=== PATIENT | female | born 1940 | race Caucasian/White ===

== ENCOUNTER → 2016-11-18 | Outpatient (CLI) | payer OTHER ==
[~2016-11-18] MED LIST: 'XANAX0.5 MG PO; ASPIRIN81 M1 PO; CITALOPRAM20 MG PO; COUMADIN6 M1 PO; COUMADIN6 M2 PO; DICLOFENAC SOD75 MG PO; FISH OIL1000 MG PO; FOLIC ACID800 MCG PO; FOSAMAX70 MG PO; HYDROCODONE W/1 TA1 PO; LISINOPRIL20 MG PO; NEXIUM40 MG PO; PERCOCET 325 MG1 TA4 PO; PERCOCET 325 MG1 TA7 PO; PRILOSEC20 M2 PO; SIMVASTATIN10 MG PO; VITAMIN D1000 IU PO
== END | disposition home or self-care (01) ==
LOC: MRI 01:52
DX: M43.16 Spondylolisthesis, lumbar region (principal); M51.36 Other intervertebral disc degeneration, lumbar region; M46.06 Spinal enthesopathy, lumbar region; M12.88 Other specific arthropathies, not elsewhere classified, other specified site; M79.604 Pain in right leg; G89.29 Other chronic pain

== ENCOUNTER → 2016-11-21 | Outpatient (CLI) | payer OTHER | END | disposition home or self-care (01) | LOC: NM 01:57 | DX: M17.0 Bilateral primary osteoarthritis of knee (principal); Z96.651 Presence of right artificial knee joint ==

== ENCOUNTER 2017-02-09 17:20 | Emergency (ER) | payer OTHER ==
[~2017-02-09] VITALS: Wt 95.3 kg
== END 2017-02-09 19:13 | disposition home or self-care (01) ==
LOC: ED 17:20
DX: S13.9XXA Sprain of joints and ligaments of unspecified parts of neck, initial encounter (principal); S09.90XA Unspecified injury of head, initial encounter; R03.0 Elevated blood-pressure reading, without diagnosis of hypertension; Z90.710 Acquired absence of both cervix and uterus; Z96.651 Presence of right artificial knee joint; Z98.890 Other specified postprocedural states; Z79.01 Long term (current) use of anticoagulants; Z79.899 Other long term (current) drug therapy; W01.198A Fall on same level from slipping, tripping and stumbling with subsequent striking against other object, initial encounter; Y93.89 Activity, other specified; Y92.89 Other specified places as the place of occurrence of the external cause; Y99.9 Unspecified external cause status

== ENCOUNTER → 2017-02-28 | Outpatient (CLI) | payer OTHER ==
[2017-02-28 15:42] LABS: BASO % 0.5 % (0.0-1.0); EOS % 0.4 % (1.0-4.0); HEMATOCRIT 41.5 % (37.0-47.0); HEMOGLOBIN 13.3 g/dl (12.0-16.0); LYMPH # 3.9 10*3/uL (1.3-4.4); MEAN CELL VOLUME 83.8 fl (81.0-99.0); MEAN CORPUSCULAR HGB 26.9 pg (27.0-31.0); MEAN PLATELET VOLUME 10.2 fl (9.6-12.3); MONO # 0.7 10*3/uL (0.1-1.0); MONO % 8.3 % (3.0-9.0); NEUT # 3.8 10*3/uL (2.3-7.9); NEUT % 44.3 % (47.0-73.0); PLATELET COUNT AUTOMATED 239 10*3/uL (130-400); RED BLOOD COUNT 4.95 10*6/uL (4.10-5.10); RED CELL DISTRI WIDTH 14.3 % (0-14.5); WHITE BLOOD COUNT 8.5 10*3/uL (4.8-10.8)
== END | disposition home or self-care (01) ==
LOC: LAB 15:17
PROVIDERS: Physician Assistant
DX: M79.606 Pain in leg, unspecified (principal); R53.1 Weakness

== ENCOUNTER → 2017-10-26 | Outpatient (CLI) | payer OTHER | END | disposition home or self-care (01) | LOC: US 01:45 | DX: N28.89 Other specified disorders of kidney and ureter (principal) ==

== ENCOUNTER → 2018-01-31 | Outpatient (CLI) | payer OTHER ==
[2018-01-31 14:06] LABS: BASO % 0.3 % (0.0-1.0); EOS % 0.2 % (1.0-4.0); HEMATOCRIT 43.2 % (37.0-47.0); HEMOGLOBIN 13.7 g/dl (12.0-16.0); LYMPH # 3.4 10*3/uL (1.3-4.4); LYMPH % 37.4 % (27.0-41.0); MEAN CELL VOLUME 84.4 fl (81.0-99.0); MEAN CORPUSCULAR HGB 26.8 pg (27.0-31.0); MEAN CORPUSCULAR HGB CONC 31.7 g/dl (33.0-37.0); MEAN PLATELET VOLUME 10.2 fl (9.6-12.3); MONO # 0.7 10*3/uL (0.1-1.0); MONO % 7.6 % (3.0-9.0); NEUT # 4.8 10*3/uL (2.3-7.9); NEUT % 53.9 % (47.0-73.0); PLATELET COUNT AUTOMATED 243 10*3/uL (130-400); RED BLOOD COUNT 5.12 10*6/uL (4.10-5.10); RED CELL DISTRI WIDTH 14.6 % (0-14.5)
[2018-01-31 14:08] LABS: BILIRUBIN NEGATIVE (NEGATIVE); BLOOD 2+ (NEGATIVE); CLARITY CLOUDY (CLEAR); COLOR YELLOW (YELLOW); GLUCOSE NEGATIVE (NEGATIVE); KETONE NEGATIVE (NEGATIVE); LEUKO ESTERASE 2+ (NEGATIVE); NITRITE POSITIVE (NEGATIVE); PH 5.5 (5.0-9.0); SPECIFIC GRAVITY >= 1.030 (1.005-1.030); UROBILINOGEN 0.2 E.U./dl (0.2-1.0)
[2018-01-31 14:20] LABS: WBC TNTC wbc/hpf (0-5)
[2018-01-31 14:36] LABS: ALBUMIN 3.7 gm/dl (3.1-4.5); ALKALINE PHOSPHATASE 93 U/L (45-117); BUN 21 mg/dl (7-24); CHLORIDE 103 mmol/L (98-107); CREATININE 0.95 mg/dL (0.55-1.02); POTASSIUM 4.1 mmol/L (3.5-5.1); SGOT/AST 30 IU/L (3-35); SGPT/ALT 22 U/L (12-78); SODIUM 136 mmol/L (136-145); TOTAL PROTEIN 8.2 gm/dL (6.4-8.2)
== END ==
LOC: CT 01-30 11:00 → LAB 13:37 → CT 14:00
PROVIDERS: Urology
DX: R31.9 Hematuria, unspecified (principal); R32 Unspecified urinary incontinence; K40.90 Unilateral inguinal hernia, without obstruction or gangrene, not specified as recurrent; M12.88 Other specific arthropathies, not elsewhere classified, other specified site; Z90.710 Acquired absence of both cervix and uterus

== ENCOUNTER → 2019-01-07 | Outpatient (CLI) | payer OTHER ==
[~2019-01-07] MED LIST changes: +COUMADIN3 M1 PO; +CYMBALTA60 MG PO; +FOLIC ACID0.8 M1 PO; +LEVOTHYROXINE50 MCG PO; +Lopressor25 MG PO; +MYRBETRIQ50 M1 PO; +Oscal,Oyster S500 MG PO; +REXULTI0.5 MG PO; +TOVIAZ8 MG PO; +XARE20MG PO
[2019-01-07 15:20] LABS: BASO % 0.4 % (0.0-1.0); EOS # 0.1 10*3/uL (0.0-0.4); EOS % 0.7 % (1.0-4.0); HEMATOCRIT 43.6 % (37.0-47.0); HEMOGLOBIN 13.7 g/dl (12.0-16.0); LYMPH # 2.4 10*3/uL (1.3-4.4); LYMPH % 29.4 % (27.0-41.0); MEAN CELL VOLUME 86.9 fl (81.0-99.0); MEAN CORPUSCULAR HGB 27.3 pg (27.0-31.0); MEAN CORPUSCULAR HGB CONC 31.4 g/dl (33.0-37.0); MEAN PLATELET VOLUME 10.4 fl (9.6-12.3); MONO # 0.7 10*3/uL (0.1-1.0); MONO % 8.1 % (3.0-9.0); NEUT # 4.9 10*3/uL (2.3-7.9); NEUT % 60.5 % (47.0-73.0); PLATELET COUNT AUTOMATED 255 10*3/uL (130-400); RED BLOOD COUNT 5.02 10*6/uL (4.10-5.10)
[2019-01-07 15:47] LABS: ALBUMIN 3.3 gm/dl (3.1-4.5); ALKALINE PHOSPHATASE 91 U/L (45-117); BUN 16 mg/dl (7-24); CHLORIDE 104 mmol/L (98-107); CREATININE 0.98 mg/dL (0.55-1.02); POTASSIUM 3.9 mmol/L (3.5-5.1); SGOT/AST 16 IU/L (3-35); SGPT/ALT 17 U/L (12-78); SODIUM 137 mmol/L (136-145); TOTAL PROTEIN 7.7 gm/dL (6.4-8.2)
== END | disposition home or self-care (01) ==
LOC: LAB 14:23 → US 15:00
PROVIDERS: Nurse Practitioner Family
DX: N28.89 Other specified disorders of kidney and ureter (principal)

== ENCOUNTER 2019-02-01 19:10 | Inpatient (IN) | payer OTHER ==
[~2019-02-01] VITALS: Ht 157.4 cm; Wt 98.7 kg
--- NOTE | ~2019-02-01 | DS ---
[place], [place] DISCHARGE SUMMARY NAME: LEAH ALVA UNIT #: [id number] ROOM: 402 DOCTOR: ALIX TORRES MD BIRTHDATE: [birth year] DOS: 02/05/2019 DIAGNOSES: 1. Hematuria from elevated protime. 2. Urinary tract infection ruled out. 3. Chronic urinary incontinence from overactive bladder. 4. Permanent atrial fibrillation. 5. Noncompliance with poor insight to medical problems, especially when comes to protime 6. Benign hypertension. 7. Chronic low back pain with lumbar spinal stenosis, followed by pain clinic. 8. Major depression, moderate, recurrent mixed hyperlipidemia. DISCHARGE MEDICATIONS: Xarelto 20 mg evening, Xanax 0.5 b.i.d. p.r.n. for anxiety, simvastatin 10 daily, omeprazole 20 b.i.d., folic acid 0.8 mg daily, Cymbalta 60 daily, Rexulti 0.5 daily, Toviaz 8 mg daily, levothyroxine 25 mcg daily, Myrbetriq 50 daily, calcium 500 t.i.d., metoprolol 25 daily. HOSPITAL COURSE: The patient is 79 years old. She comes in with significant bleeding noticed in her urine. Please refer to H and P for details of the admission. The patient had a CT of the abdomen and pelvis, did not show any evidence of any urinary calculi or polyps or tumor. The patient was given IV fluids and let the protime slide down, but the protime remained high for the next 48 hours, so fresh frozen plasma and vitamin K was given, especially since the patient was bleeding pretty heavily. CBI was also started and this irrigation had resolved the hematuria. This had been later discontinued. Pham catheter has been removed. Urine culture was done, which has come back negative. The patient's home medications have been continued. This morning, the patient is relatively stable. The plan is to discharge and follow up as an outpatient. [place], [place] DISCHARGE SUMMARY NAME: LEAH ALVA UNIT #: [id number] ROOM: 402 DOCTOR: ALIX TORRES MD BIRTHDATE: [birth year] ALIX TORRES MD CM:JOHANNY ALIX TORRES MD 02/05/19 0848 interface
--- NOTE | ~2019-02-01 | EKG ---
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
--- NOTE | ~2019-02-01 | PR ---
[place], [place] PROGRESS NOTE NAME: LEAH ALVA UNIT #: [id number] ROOM: 402 DOCTOR: ALIX TORRES MD BIRTHDATE: [birth year] DOS: 02/05/2019 SUBJECTIVE: The patient is not having any new complaints. She has chronic increased urinary frequency. OBJECTIVE: VITAL SIGNS: Graphic trend shows a pressure of 130/57, pulse of 60, respirations 18, temperature 98.2. LUNGS: Clear. HEART: Irregular. ABDOMEN: Soft. EXTREMITIES: Without any edema. LABORATORY DATA: Urine culture, no bacterial growth final. BMP: Glucose 114, BUN 12, creatinine 0.80. Electrolytes normal. ASSESSMENT AND PLAN: 1. Hematuria from elevated protimes. The patient's Coumadin has been discontinued, was given fresh frozen plasma and vitamin K to correct the protime and irrigation with CBI. Hematuria has resolved. Urine culture is negative. The patient is to be discharged to home today. The patient's Coumadin will be discontinued. 2. Chronic permanent atrial fibrillation, on long-term use of anticoagulants. Since she is not very compliant with Coumadin dosing and protime, will discontinue Coumadin and place on Xarelto, prescription has been written. The patient to get it from the hospital pharmacy. 3. Chronic increased urinary incontinence. The patient does see Dr. Ascencio as an outpatient. Advised to see him for readjustments in medications. ALIX TORRES MD CM:PNTRANS [id number] ALIX TORRES MD 02/05/19 1223 interface
--- NOTE | ~2019-02-01 | PR ---
[place], [place] PROGRESS NOTE NAME: LEAH ALVA UNIT #: [id number] ROOM: 402 DOCTOR: ALIX TORRES MD BIRTHDATE: [birth year] DOS: 02/04/2019 SUBJECTIVE: The patient is doing well. During the night, she did develop some abdominal pain. The CBI had cleared the urine, so that was discontinued. OBJECTIVE: VITAL SIGNS: Blood pressure is 143/52, pulse of 70, respirations 18, temperature 98.1. LUNGS: Diminished breath sounds. HEART: Irregular. ABDOMEN: Obese, soft, nontender this morning. EXTREMITIES: Without any edema. LABORATORY DATA: BMP: Glucose 114, BUN 12, creatinine 0.80, sodium 140, potassium 3.8, chloride 107, bicarbonate 28. Urine culture, no bacterial growth. CBC: WBC count 8.3, hemoglobin 11.8. Protime is 13.2 with an INR of 1.2. Platelet function assay showed platelet function to be decreased. ASSESSMENT AND PLAN: 1. Hematuria from extremely elevated protime, but hematuria has resolved. 2. Elevated protime on Coumadin. The patient has not been able to come in for protime and has been running rather high, so it may not be the right medicine for her. We will discontinue Coumadin and placed on Xarelto. 3. Chronic permanent atrial fibrillation, controlled. 4. Benign hypertension, controlled. 5. Urinary tract infection has been ruled out. Discontinue IV fluids and IV antibiotics. ALIX TORRES MD CM:PNTRANS 7 [phone] ALIX TORRES MD 02/04/1906 interface
--- NOTE | ~2019-02-01 | PR ---
[place], [place] PROGRESS NOTE NAME: LEAH ALVA UNIT #: [id number] ROOM: 402 DOCTOR: ALIX TORRES MD BIRTHDATE: [birth year] DOS: 02/03/2019 SUBJECTIVE: The patient is still having significant hematuria. OBJECTIVE: VITAL SIGNS: Blood pressure is 129/56, pulse of 81, respirations 18, temperature 98.8. LUNGS: Clear. HEART: Regular. ABDOMEN: Soft. EXTREMITIES: Without any edema. LABORATORY DATA: This morning shows white cell count is 6.6, hemoglobin 11.7, hematocrit 37.8, platelets 213. BMP: Glucose 102, BUN 9, creatinine 0.17. Sodium 145, potassium 3.4, chloride 112. CT of the abdomen and pelvis did not show any evidence of any bladder tumors. ASSESSMENT AND PLAN: 1. Hematuria, possibly from the elevated protime. Since she is continuing to bleed, a CBI will be started. 2. Elevated protime. The patient will be started on vitamin K and one dose of fresh frozen plasma protein and a platelet function study will be ordered. So far, the H and H seems to be dropping very slowly also, we will keep a close eye on that. 3. Benign hypertension, controlled. 4. Permanent atrial fibrillation, the patient's Coumadin has been discontinued. We will need to consider possible Xarelto since we are having a hard time keeping her protime in acceptable range. ALIX TORRES MD CM:PNTRANS [phone] ALIX TORRES MD 02/03/19 1812 interface
--- NOTE | ~2019-02-01 | WRIGHTHP ---
[place], [place] PATIENT HISTORY AND PHYSICAL EXAM NAME: LEAH ALVA [facility] #: [id number] UNIT #: [id number] ROOM: 402 DOCTOR: ALIX TORRES MD BIRTHDATE: [birth year] DOS: 02/01/2019 HISTORY OF PRESENT ILLNESS: This patient is 79 years old. The patient is very well known to us. She has been having some hematuria and so the patient is being admitted to the hospital. She denies having any abdominal pain, any nausea, any emesis, any fever or chills. She has been taking her Coumadin and her protime has been extremely elevated at 6.9 in the office yesterday. She was advised to come into the ER, was admitted. This morning, a Pham catheter was inserted and she still has bloody urine, but it is clearing very slightly. PAST MEDICAL HISTORY: Significant for: 1. Chronic atrial fibrillation, long-term use of anticoagulants. 2. Benign hypertension. 3. Chronic low-back pain with lumbar spinal stenosis. 4. Major depression. 5. Mixed hyperlipidemia. MEDICATIONS: At the time of admission were [place] with vitamin D 500 t.i.d., Xanax 0.5 twice a day, duloxetine 60 daily, Toviaz 8 mg daily, folic acid 8 mg daily, levothyroxine 25 mcg daily, metoprolol 25 daily, Myrbetriq 50 mg daily, omeprazole 20 daily, Rexulti 0.5 mg daily, simvastatin 10 daily, and Coumadin. SOCIAL HISTORY: Nonsmoker, does not use any alcohol. Lives at home with her . PHYSICAL EXAMINATION: VITAL SIGNS: Pressure is 138/72, pulse of 90, respirations 20, temperature 98.1. LUNGS: Clear. HEART: Irregular. ABDOMEN: Obese, soft, nontender. EXTREMITIES: Without any edema. ASSESSMENT AND PLAN: 1. Hematuria. Pham catheter has been placed. We will try to continue to evaluate and follow closely. 2. Serial hemoglobin and hematocrit will be ordered to make sure she is not dropping her hematocrit. 3. Permanent atrial fibrillation, on long-term use of anticoagulants. Protime is high. Coumadin has been discontinued. Protime is slowly sliding down at 5.[address] of the abdomen will be ordered to check for bladder malignancies and may need irrigation. 5. Benign hypertension, controlled. 6. Generalized anxiety disorder, continue Xanax. [place], [place] PATIENT HISTORY AND PHYSICAL EXAM NAME: LEAH ALVA UNIT #: [id number] ROOM: [facility] DOCTOR: ALIX TORRES MD BIRTHDATE: [birth year] ALIX TORRES MD CM:HISPHYS:PATIENT HISTORY AND PHYSICAL EXAMINATION [id number] ALIX TORRES MD 02/02/19 1008 interface
[~2019-02-01 19:10] MED LIST changes: -COUMADIN3 M1 PO; -CYMBALTA60 MG PO; -FOLIC ACID0.8 M1 PO; -LEVOTHYROXINE50 MCG PO; -Lopressor25 MG PO; -MYRBETRIQ50 M1 PO; -Oscal,Oyster S500 MG PO; -REXULTI0.5 MG PO; -TOVIAZ8 MG PO; -XARE20MG PO
[2019-02-01 19:11] VITALS: BP 116/66
[2019-02-01 20:05] LABS: BASO % 0.4 % (0.0-1.0); EOS # 0.1 10*3/uL (0.0-0.4); EOS % 1.5 % (1.0-4.0); HEMATOCRIT 41.4 % (37.0-47.0); LYMPH # 2.6 10*3/uL (1.3-4.4); LYMPH % 31.7 % (27.0-41.0); MEAN CELL VOLUME 85.7 fl (81.0-99.0); MEAN CORPUSCULAR HGB 26.9 pg (27.0-31.0); MEAN CORPUSCULAR HGB CONC 31.4 g/dl (33.0-37.0); MEAN PLATELET VOLUME 10.3 fl (9.6-12.3); MONO # 0.7 10*3/uL (0.1-1.0); MONO % 8.8 % (3.0-9.0); NEUT # 4.7 10*3/uL (2.3-7.9); NEUT % 56.7 % (47.0-73.0); PLATELET COUNT AUTOMATED 239 10*3/uL (130-400); RED BLOOD COUNT 4.83 10*6/uL (4.10-5.10); RED CELL DISTRI WIDTH 13.8 % (0-14.5); WHITE BLOOD COUNT 8.2 10*3/uL (4.8-10.8)
[2019-02-01 20:22] LABS: ALBUMIN 3.2 gm/dl (3.1-4.5); ALKALINE PHOSPHATASE 96 U/L (45-117); BUN 16 mg/dl (7-24); CHLORIDE 106 mmol/L (98-107); CREATININE 0.92 mg/dL (0.55-1.02); LIPASE 97 U/L (73-393); POTASSIUM 3.5 mmol/L (3.5-5.1); SGOT/AST 25 IU/L (3-35); SGPT/ALT 19 U/L (12-78); SODIUM 138 mmol/L (136-145); TOTAL PROTEIN 7.6 gm/dL (6.4-8.2)
[2019-02-01 20:23] LABS: TROPONIN I < 0.015 ng/ml (<0.045)
[2019-02-01 20:26] LABS: ACT PARTIAL THROMBO TIME 56.7 SECONDS (20.0-32.1)
[2019-02-01 20:31] LABS: INTERNATIONAL NORM RATIO 6.4 (2.0-3.5)
--- NOTE | 2019-02-01 20:37 | NUR ---
INR 6.4. PROVIDER AWARE.
--- NOTE | 2019-02-01 20:50 | NUR ---
A 79, admitted to , under the services of ALIX Rose MD with a diagnosis of HEMATURA , SUPRATHEREPEUTIC. Chief complaint is SENT IN BY DR. TORRES WITH ABNORMAL LABS. Patient arrived via stretcher from ER. Monitor applied. Initial assessment completed. Vital signs taken and recorded. ALIX ROSE MD notified of admission to the unit. Orders received. See assessment for past medical history, medications and allergies. Patient and/or family oriented to unit. [facility] visitation policy reviewed. Clothing/patient valuable form completed. RYAN LOPES
--- NOTE | 2019-02-01 21:30 | NUR ---
MEDICATION LIST REVIEWED WITH MEDICATION BOTTLES AND DTR .
[2019-02-01 22:00] VITALS: BP 133/93
[2019-02-01] MEDS ORDERED: COUMADIN3 M1 PO (22:18)
[2019-02-01] MEDS ORDERED: FOLIC ACID0.8 M1 PO (22:21)
[2019-02-01] MEDS ORDERED: CYMBALTA60 MG PO (22:21)
[2019-02-01] MEDS ORDERED: REXULTI0.5 MG PO (22:22)
[2019-02-01] MEDS ORDERED: TOVIAZ8 MG PO (22:22)
[2019-02-01] MEDS ORDERED: LEVOTHYROXINE50 MCG PO (22:23)
[2019-02-01] MEDS ORDERED: MYRBETRIQ50 M1 PO (22:24)
[2019-02-01] MEDS ORDERED: Lopressor25 MG PO (22:24)
[2019-02-01] MEDS ORDERED: Oscal,Oyster S500 MG PO (22:25)
--- NOTE | 2019-02-01 22:45 | NUR ---
FOX INSERTED PER ORDER. RETURN OF APPROX 400 CC BLOODY URINE.
[2019-02-02] VITALS: BP 130/97
[2019-02-02 02:58] LABS: BILIRUBIN 3+ (NEGATIVE); BLOOD 3+ (NEGATIVE); CLARITY CLOUDY (CLEAR); COLOR RED (YELLOW); GLUCOSE TRACE (NEGATIVE); KETONE 1+ (NEGATIVE); LEUKO ESTERASE 2+ (NEGATIVE); NITRITE POSITIVE (NEGATIVE); PH 6.5 (5.0-9.0)
[2019-02-02 03:07] LABS: BACTERIA 1+; RBC TNTC rbc/hpf (0-2); WBC 41-50 wbc/hpf (0-5)
[2019-02-02 04:00] VITALS: BP 134/67
[2019-02-02 07:18] LABS: BASO % 0.5 % (0.0-1.0); EOS # 0.2 10*3/uL (0.0-0.4); EOS % 2.3 % (1.0-4.0); HEMATOCRIT 39.1 % (37.0-47.0); HEMOGLOBIN 12.4 g/dl (12.0-16.0); LYMPH # 2.8 10*3/uL (1.3-4.4); LYMPH % 42.6 % (27.0-41.0); MEAN CELL VOLUME 86.9 fl (81.0-99.0); MEAN CORPUSCULAR HGB 27.6 pg (27.0-31.0); MEAN CORPUSCULAR HGB CONC 31.7 g/dl (33.0-37.0); MEAN PLATELET VOLUME 10.3 fl (9.6-12.3); MONO # 0.6 10*3/uL (0.1-1.0); MONO % 8.4 % (3.0-9.0); NEUT % 45.3 % (47.0-73.0); PLATELET COUNT AUTOMATED 210 10*3/uL (130-400); RED CELL DISTRI WIDTH 14.2 % (0-14.5); WHITE BLOOD COUNT 6.7 10*3/uL (4.8-10.8)
--- NOTE | 2019-02-02 07:20 | NUR ---
24 HR chart check completed.
[2019-02-02 07:43] LABS: BUN 14 mg/dl (7-24); CHLORIDE 111 mmol/L (98-107); CREATININE 0.78 mg/dL (0.55-1.02); POTASSIUM 3.6 mmol/L (3.5-5.1); SODIUM 143 mmol/L (136-145)
[2019-02-02 07:57] VITALS: BP 138/72
--- NOTE | 2019-02-02 08:00 | NUR ---
dr tay here to assess patient and discuss plan of care
[2019-02-02 08:04] LABS: INTERNATIONAL NORM RATIO 5.8 (2.0-3.5)
--- NOTE | 2019-02-02 09:00 | NUR ---
sitting at bedside eating. no distress noted. respirations easy. lungs diminished with crackles. pulse ox 97% ra. cruz patent draining bloody urine. iv fluids infusing per order. call light within reach. no voiced complaints
[2019-02-02 12:00] VITALS: BP 110/52
--- NOTE | 2019-02-02 13:00 | NUR ---
RESTING WITH EYES CLOSED. RESPIRATIONS EASY. IV FLUIDS MAINTAINED.
--- NOTE | 2019-02-02 15:08 | NUR ---
TRANSPORTED OFF FLOOR VIA WC FOR CT
[2019-02-02 16:00] VITALS: BP 137/81
--- NOTE | 2019-02-02 17:40 | NUR ---
DR TORRES CONTACTED, CT RESULTS REVIEWED. NO NEW ORDERS RECEIVED
[2019-02-02 20:00] VITALS: BP 149/70
[2019-02-03] VITALS (8 sets, daily range): BP systolic 116–160; BP diastolic 55–78
[2019-02-03 06:16] LABS: BASO % 0.2 % (0.0-1.0); EOS # 0.1 10*3/uL (0.0-0.4); EOS % 1.5 % (1.0-4.0); HEMATOCRIT 37.8 % (37.0-47.0); HEMOGLOBIN 11.7 g/dl (12.0-16.0); LYMPH # 2.5 10*3/uL (1.3-4.4); LYMPH % 37.4 % (27.0-41.0); MEAN CELL VOLUME 86.3 fl (81.0-99.0); MEAN CORPUSCULAR HGB 26.7 pg (27.0-31.0); MEAN PLATELET VOLUME 10.6 fl (9.6-12.3); MONO # 0.6 10*3/uL (0.1-1.0); MONO % 8.7 % (3.0-9.0); NEUT # 3.4 10*3/uL (2.3-7.9); NEUT % 51.6 % (47.0-73.0); PLATELET COUNT AUTOMATED 213 10*3/uL (130-400); RED BLOOD COUNT 4.38 10*6/uL (4.10-5.10); RED CELL DISTRI WIDTH 13.9 % (0-14.5); WHITE BLOOD COUNT 6.6 10*3/uL (4.8-10.8)
[2019-02-03 06:23] LABS: BUN 9 mg/dl (7-24); CHLORIDE 112 mmol/L (98-107); CREATININE 0.71 mg/dL (0.55-1.02); POTASSIUM 3.4 mmol/L (3.5-5.1); SODIUM 145 mmol/L (136-145)
--- NOTE | 2019-02-03 07:00 | NUR ---
DR TORRES HERE TO ASSESS PATIENT AND DISCUSS PLAN OF CARE
--- NOTE | 2019-02-03 07:16 | NUR ---
24 HR chart check completed.
--- NOTE | 2019-02-03 08:30 | NUR ---
RESTING IN BED WITH NO ACUTE DISTRESS NOTED. RESPIRATIONS EASY. LUNGS DIMINISHED, CLEAR. PULSE OX 95% RA. FOX PATENT DRAINING BLOOD. IV FLUIDS INFUSING PER ORDER. CALL LIGHT WITHIN REACH. NO VOICED COMPLAINTS
--- NOTE | 2019-02-03 10:03 | NUR ---
FFP EXPLAINED, QUESTIONS/CONCERNS ADDRESSED. CONSENT OBTAINED. FFP INITIATED. VSS.
--- NOTE | 2019-02-03 10:15 | NUR ---
FFP MAINTAINED. PATIENT TOLERATING. VSS.
--- NOTE | 2019-02-03 10:50 | NUR ---
1ST UNIT FFP COMPLETE. PATIENT TOLERATED WELL WITH NO ADVERSE REACTION NOTED
--- NOTE | 2019-02-03 11:10 | NUR ---
3 WAY CATH PLACED AND CBI INITIATED. URINE REMAINS BLOODY
--- NOTE | 2019-02-03 12:14 | NUR ---
SECOND UNIT FFP INITIATED. PATIENT TOLERATING.
--- NOTE | 2019-02-03 13:00 | NUR ---
2ND UNIT FFP TRANSFUSION COMPLETE. PATIENT TOLERATED WELL WITH NO ADVERSE REACTION NOTED
--- NOTE | 2019-02-03 16:36 | NUR ---
MEDICATED WITH TYLENOL PER PRN ORDER FOR COMPLAINTS OF HEADACHE RATING AN 8. CALL LIGHT WITHIN REACH. WILL MONITOR FOR EFFECTIVENESS
--- NOTE | 2019-02-03 17:00 | NUR ---
3 WAY CATH INADVERTENTLY PULLED OUT. NEW CATH INSERTED AND CBI REINITIATED. URINE BLOODY. WILL MONITOR
--- NOTE | 2019-02-03 20:20 | NUR ---
PT RESTING IN BED. RESP-EASY AND REGULAR. TOLERATED ROUTINE XANAX PO PER PRN ORDER, SEE EMAR. FOR ANXIETY. CBI INFUSING WITH NO PROBLEM. OUTPUT LIGHT RED IN COLOR. IVF INFUSING WITH NO PROBLEM. CALL LIGHT IN REACH. SEE SHIFT ASSESSMENT.
--- NOTE | 2019-02-03 22:00 | NUR ---
IVF INFUSING WITH NO PROBLEM. NO C/O AT THIS TIME. CALL LIGHT IN REACH.
[2019-02-04] VITALS: BP 143/52
--- NOTE | 2019-02-04 00:05 | NUR ---
PT RESTING IN BED WITH EYES CLOSED. RESP-EASY AND REGULAR. IVF INFUSING WITH NO PROBLEM. CBI RUNNING WITH RED COLOR OUTPUT. CALL LIGHT IN REACH. SEE SHIFT ASSESSMENT.
--- NOTE | 2019-02-04 02:35 | NUR ---
PT C/O NAUSEA WITH VERY SMALL LIQUID EMESIS. ALSO C/O PER PT SEVERE RIGHT SIDE/ABDOMEN PAIN AND LOWER ABDOMINAL PAIN, RATES PAIN 6 ON PAIN SCALE 0-10. CALLED DR. TORRES ORDERS TAKEN AND REVIEWED. ALSO D/C CBI. CALL LIGHT IN REACH.
--- NOTE | 2019-02-04 03:05 | NUR ---
MEDICATED WITH ZOFRAN FOR NAUSEA. ALSO MEDICATED WITH DILAUDID IV PER PRN ORDER, FOR PAIN, SEE EMAR. RATES PAIN 6 ON PAIN SCALE 0-10. CALL LIGHT IN REACH. CBI DISCONTINUED PT TOLERATED. BRIEF IN USE.
--- NOTE | 2019-02-04 04:00 | NUR ---
SLEEPING IN BED. RESP-EASY AND REGULAR. MEDICATION EFFECTIVE. CALL LIGHT IN REACH.
--- NOTE | 2019-02-04 06:00 | NUR ---
TOLERATED ROUTINE MED WITH NO PROBLEM. IVF INFUSING WITH NO PROBLEM. CALL LIGHT IN REACH.
[2019-02-04 06:11] LABS: BASO % 0.2 % (0.0-1.0); EOS # 0.1 10*3/uL (0.0-0.4); EOS % 1.6 % (1.0-4.0); HEMATOCRIT 37.7 % (37.0-47.0); HEMOGLOBIN 11.8 g/dl (12.0-16.0); LYMPH # 1.8 10*3/uL (1.3-4.4); LYMPH % 22.2 % (27.0-41.0); MEAN CELL VOLUME 86.9 fl (81.0-99.0); MEAN CORPUSCULAR HGB 27.2 pg (27.0-31.0); MEAN CORPUSCULAR HGB CONC 31.3 g/dl (33.0-37.0); MEAN PLATELET VOLUME 10.2 fl (9.6-12.3); MONO # 0.5 10*3/uL (0.1-1.0); MONO % 6.5 % (3.0-9.0); NEUT # 5.7 10*3/uL (2.3-7.9); NEUT % 68.4 % (47.0-73.0); PLATELET COUNT AUTOMATED 206 10*3/uL (130-400); RED BLOOD COUNT 4.34 10*6/uL (4.10-5.10); RED CELL DISTRI WIDTH 13.6 % (0-14.5); WHITE BLOOD COUNT 8.3 10*3/uL (4.8-10.8)
[2019-02-04 06:20] LABS: INTERNATIONAL NORM RATIO 1.2 (2.0-3.5)
[2019-02-04 06:37] LABS: BUN 12 mg/dl (7-24); CHLORIDE 107 mmol/L (98-107); POTASSIUM 3.8 mmol/L (3.5-5.1); SODIUM 140 mmol/L (136-145)
[2019-02-04 08:00] VITALS: BP 150/88
--- NOTE | 2019-02-04 08:00 | NUR ---
IN ROOM TO SEE PATIENT. PATIENT, AWAKE, ORIENTED X3. IV FLUIDS DISCONTINUED AT THIS TIME PER ORDER. LUNGS CLEAR, NO EDEMA. DENIES ANY COMPLAINTS. CALL LIGHT WITHIN REACH.
--- NOTE | 2019-02-04 10:30 | NUR ---
[employer] Professional in to talk to patient. Patient states lives at home with her . There are 0 steps in the home. Physician: Dr. May Parra Pharmacy: [facility] health services: none Patient's level of ADLs: MINIMAL ASSIST Patient has working utilities: yes DME: walker, cane Follow-up physician's appointment after d/c: she prefers to make her own follow up appt after discharge Does patient want to access PORTAL?: no Discharge plan discussed with patient. She lives at home with her . She is independent in her ADLs and ambulates with either a walker or a cane. Discussed short term SNF and home health care services and she denies a need for either. When medically stable she will be discharged to home. Her sister will provide transportation on discharge. RYLEE THAYER
[2019-02-04 12:00] VITALS: BP 100/50
[2019-02-04 16:00] VITALS: BP 100/46
--- NOTE | 2019-02-04 19:44 | NUR ---
24 HR chart check completed.
[2019-02-04 20:00] VITALS: BP 130/51
--- NOTE | 2019-02-04 20:00 | NUR ---
RESTING IN BED WITH NO ACUTE DISTRESS NOTED. RESPIRATIONS EASY. LUNGS DIMINISHED, CLEAR. PULSE OX 93% RA. DENIES DYSURIA, STATES URINE NO LONGER BLOODY. CALL LIGHT WITHIN REACH. NO VOICED COMPLAINTS
--- NOTE | 2019-02-04 21:44 | NUR ---
REQUESTED AND RECEIVED TYLENOL PER PRN ORDER FOR COMPLAINTS OF GEN ACHES/PAINS. CALL LIGHT WITHIN REACH. WILL MONITOR
--- NOTE | 2019-02-04 23:00 | NUR ---
STATES RELIEF FROM EARLIER MEDS. CALL LIGHT WITHIN REACH. NO FURTHER VOICED COMPLAINTS
[2019-02-05] VITALS: BP 130/57
--- NOTE | 2019-02-05 | NUR ---
MEDS APPEAR EFFECTIVE, SLEEPING. RESPIRATIONS EASY. VSS. CALL LIGHT WITHIN REACH
--- NOTE | 2019-02-05 03:00 | NUR ---
SLEEPING. NO DISTRESS NOTED. RESPIRATIONS EASY. CALL LIGHT WITHIN REACH
--- NOTE | 2019-02-05 06:00 | NUR ---
SLEPT THROUGHOUT NIGHT WITH NO DISTRESS NOTED. RESPIRATIONS EASY. CALL LIGHT WITHIN REACH. NO VOICED COMPLAINTS THIS SHIFT
[2019-02-05 08:00] VITALS: BP 130/60; BP 146/66
[2019-02-05] MEDS ORDERED: XARE20MG PO (08:19)
--- NOTE | 2019-02-05 08:36 | NUR ---
MONITOR REMOVED Hep Lock discontinued. Site asymptomatic. Pressure applied. Sterile dressing applied. DR TORRES ROUNDED AND DISCUSSED DISCHARGE WITH PATIENT
--- NOTE | 2019-02-05 11:00 | NUR ---
DR VAIL HERE AND ROUNDED
--- NOTE | 2019-02-05 11:03 | NUR ---
PATIENT GETTING DRESSED TO GO HOME - MEDICATION READY IN PHARMACY
--- NOTE | 2019-02-05 12:14 | NUR ---
PATIENT TAKEN OUT VIA WHEEL CHAIR WITH BELONGINGS
== END 2019-02-05 12:14 | disposition home or self-care (01) | DRG 696 ==
LOC: ED 19:10 → EDHOLD 19:31 → 4E 19:31
PROVIDERS: Nurse Practitioner Family; ADMIT Internal Medicine
PROC: 30233K1 Transfusion of Nonautologous Frozen Plasma into Peripheral Vein, Percutaneous Approach (ICD-10-PCS; principal; 2019-02-03)
DX: R31.9 Hematuria, unspecified (principal); F33.9 Major depressive disorder, recurrent, unspecified; I48.21 Permanent atrial fibrillation; I10 Essential (primary) hypertension; E78.2 Mixed hyperlipidemia; M48.061 Spinal stenosis, lumbar region without neurogenic claudication; I48.20 Chronic atrial fibrillation, unspecified; J45.909 Unspecified asthma, uncomplicated; F41.1 Generalized anxiety disorder; N32.81 Overactive bladder; K21.9 Gastro-esophageal reflux disease without esophagitis; Z88.8 Allergy status to other drugs, medicaments and biological substances; Z90.710 Acquired absence of both cervix and uterus; Z83.3 Family history of diabetes mellitus; Z82.49 Family history of ischemic heart disease and other diseases of the circulatory system; Z82.5 Family history of asthma and other chronic lower respiratory diseases; Z79.01 Long term (current) use of anticoagulants; Z91.19 Patient's noncompliance with other medical treatment and regimen

== ENCOUNTER → 2019-04-17 | Outpatient (CLI) | payer OTHER ==
[~2019-04-17] MED LIST changes: +COUMADIN3 M1 PO; +CYMBALTA60 MG PO; +FOLIC ACID0.8 M1 PO; +LEVOTHYROXINE50 MCG PO; +Lopressor25 MG PO; +MYRBETRIQ50 M1 PO; +Oscal,Oyster S500 MG PO; +REXULTI0.5 MG PO; +TOVIAZ8 MG PO; +XARE20MG PO
== END | disposition home or self-care (01) ==
LOC: US 14:23
DX: R60.0 Localized edema (principal)

== ENCOUNTER 2019-05-08 19:12 | Inpatient (IN) | payer OTHER ==
[~2019-05-08] VITALS: Ht 154.9 cm; Wt 98.2 kg
[2019-05-08 19:20] VITALS: BP 120/58
--- NOTE | 2019-05-08 19:20 | NUR ---
A 79, admitted to , under the services of ALIX Rose MD with a diagnosis of POSSIBLE STROKE/CVA. Chief complaint is RT SIDED FACIAL PALSY. Patient arrived via bed from [place]. Monitor applied. Initial assessment completed. Vital signs taken and recorded. ALIX ROSE MD notified of admission to the unit. Orders received. See assessment for past medical history, medications and allergies. Patient and/or family oriented to unit. [facility] visitation policy reviewed. Clothing/patient valuable form completed. KANNAN GATICA
[2019-05-08] MEDS ORDERED: BUSPIRONE HCL7.5 MG PO (20:20)
[2019-05-08] MEDS ORDERED: NEURONTIN300 MG PO (20:21)
[2019-05-08] MEDS ORDERED: ISOSORBIDE DINI30 MG PO (20:22)
[2019-05-08] MEDS ORDERED: MECLIZINE HYD12.5 MG PO (20:24)
[2019-05-08] MEDS ORDERED: MYRBETRIQ25 M1 PO (20:27)
--- NOTE | 2019-05-08 21:30 | NUR ---
PATIENT REFUSED TO HAVE PICTURE TAKEN OF WOUND TO RT CALF.
--- NOTE | 2019-05-08 21:30 | NUR ---
PATIENT HAS WALLET IN LOCK BOX.
[2019-05-09] VITALS: BP 144/59
--- NOTE | 2019-05-09 05:20 | NUR ---
LEAH ALVA [id number] Please refer to the physician's history and physical for past medical history, comorbid conditions, and allergies. Diagnosis: R SIDED FACIAL PALSY,POSSIBLE STROKE Judd Score: 21,LOW OR NO RISK WOUND DESCRIPTIONS: Wound Number: 1 Location of the wound: right lateral lower extremity Thickness: Partial Size: 1.4cm x 1.2cm x 0.1cm Tunneling: none Undermining: none Sinus Tract: none Presence of Exudate: none Amount: None Color: Red Odor: None Periwound Skin Appearance: Scar Wound edges: approximated Pain (associated with wound): none at time of assessment How does patient state this happened? pt stated it started monday patient denied injury to area at this time. Surface the patient is resting on: Isoflex SKIN PREVENTION RECOMMENDATION: 1. Pressure redistribution support surface as appropriate 2. Elevate heels 3. Remove boots/TEDS every shift and reapply 4. Head of bed 30 degrees as tolerated 5. Assess nutrition and hydration 6. Manage moisture 7. Avoid the use of containment devices while in bed 8. Use absorptive products on surfaces limit layers of linens on bed 9. Turn and reposition every 1-2 hours in bed and every 1 hour in chair as tolerated 10. Weight shifts every 15 minutes while up in chair 11. Offloading with pillows or device to keep heels elevated off bed 12. Monitor skin at least every shift 13. Inspect under medical devices twice a day WOUND TREATMENT RECOMMENDATIONS: Partial thickness guidelines: Cleanse right lower extremity with nss and apply hydrogel to wound bed and cover with optifoam gentle every 2 days and prn for soiling. Patient states she will care for this area when she returns home.
[2019-05-09 08:00] VITALS: BP 154/92
--- NOTE | 2019-05-09 09:00 | NUR ---
Master Planner in to talk to patient. Patient states lives at home with her . There are 0 steps in the home. Physician: Dr. May Parra Pharmacy: [facility] health services: none Patient's level of ADLs: MINIMAL ASSIST Patient has working utilities: yes DME: walker, cane Follow-up physician's appointment after d/c: she prefers to make her own follow up appt after discharge Does patient want to access PORTAL?: no Discharge plan discussed with patient. She lives at home with her who is currently on hospice. She states he went to the [facility] while she is here in the hospital. She is independent in her ADLs and ambulates with either a walker or a cane. Discussed short term SNF and home health care services and she denies a need for either. When medically stable she will be discharged to home. Her sister will provide transportation on discharge. RYLEE THAYER
[2019-05-09 12:00] VITALS: BP 149/73
--- NOTE | 2019-05-09 12:15 | NUR ---
PHYSICAL THERAPY Attemped to see pt in the room for evaluation pt presently refusing therapy at this time will attempt at a later date. Arianna Lucio PT
--- NOTE | 2019-05-09 12:16 | NUR ---
Occupational Therapy evaluation offered this date. Patient in bed and reports she is tired. Patient declined OT evaluation at this time. OT will attempt at a later date. Chelsea Bonilla OTr/L
[2019-05-09 16:00] VITALS: BP 151/65
--- NOTE | 2019-05-09 16:09 | NUR ---
Nursing screen and occupational therapy referral received. Thank you. Chelsea Bonilla OTR/L
[2019-05-09 20:00] VITALS: BP 141/67
--- NOTE | 2019-05-09 20:00 | NUR ---
PT RESTING IN BED AWAKE, A&O, PLEASANT AND COOPERATIVE WITH STAFF. RESP NONLABORED. NO ACUTE DISTRESS NOTED. NO COMPLAINTS VOICED. NO HEPLOCK NOTED.
--- NOTE | 2019-05-09 20:18 | NUR ---
DR TORRES NOTIFIED THAT PT HAD NO IV. DR TORRES GAVE ORDER TO LEAVE IV OUT.
--- NOTE | 2019-05-09 21:25 | NUR ---
MEDICATED WITH TYLENOL PER PRN ORER FOR C/O HEADCHE.
[2019-05-10] VITALS: BP 126/55
--- NOTE | 2019-05-10 06:30 | NUR ---
PRN TYLENOL GIVEN FOR PT COMPLAINTS OF A SLIGHT HEADACHE. CALL LIGHT WITHIN REACH, WILL MONITOR
[2019-05-10 08:00] VITALS: BP 132/60
--- NOTE | 2019-05-10 08:12 | NUR ---
PHYSICAL THERAPY Screen and PT eval received will follow thank you Arianna Lucio PT
[2019-05-10] MEDS ORDERED: MECLIZINE HYD12.5 MG PO (11:13)
--- NOTE | 2019-05-10 13:55 | NUR ---
[facility] Discharge instructions reviewed with patient/family. Patient receptive and verbalizes understanding. Follow-up care arranged. Written instructions given to patient/family. JACOBY BUNCH
== END 2019-05-10 13:55 | disposition home or self-care (01) | DRG 69 ==
LOC: 4E 19:12
PROVIDERS: ADMIT Internal Medicine
DX: G45.9 Transient cerebral ischemic attack, unspecified (principal); N18.6 End stage renal disease; F33.1 Major depressive disorder, recurrent, moderate; I12.0 Hypertensive chronic kidney disease with stage 5 chronic kidney disease or end stage renal disease; I73.89 Other specified peripheral vascular diseases; I48.0 Paroxysmal atrial fibrillation; H49.01 Third [oculomotor] nerve palsy, right eye; G89.29 Other chronic pain; M54.5 Low back pain; Z79.01 Long term (current) use of anticoagulants; Z86.73 Personal history of transient ischemic attack (TIA), and cerebral infarction without residual deficits

== ENCOUNTER → 2019-12-18 | Outpatient (CLI) | payer OTHER ==
[~2019-12-18] MED LIST changes: +BUSPIRONE HCL7.5 MG PO; +ISOSORBIDE DINI30 MG PO; +MECLIZINE HYD12.5 MG PO; +MYRBETRIQ25 M1 PO; +NEURONTIN300 MG PO
[2019-12-18 14:47] LABS: BASO % 0.5 % (0.0-1.0); EOS # 0.1 10*3/uL (0.0-0.4); HEMATOCRIT 41.3 % (37.0-47.0); LYMPH # 2.5 10*3/uL (1.3-4.4); LYMPH % 30.9 % (27.0-41.0); MEAN CELL VOLUME 86.4 fl (81.0-99.0); MEAN CORPUSCULAR HGB CONC 31.2 g/dl (33.0-37.0); MEAN PLATELET VOLUME 10.3 fl (9.6-12.3); MONO # 0.6 10*3/uL (0.1-1.0); MONO % 7.3 % (3.0-9.0); NEUT # 4.7 10*3/uL (2.3-7.9); NEUT % 59.8 % (47.0-73.0); PLATELET COUNT AUTOMATED 242 10*3/uL (130-400); RED BLOOD COUNT 4.78 10*6/uL (4.10-5.10); RED CELL DISTRI WIDTH 14.4 % (0-14.5); WHITE BLOOD COUNT 7.9 10*3/uL (4.8-10.8)
[2019-12-18 15:20] LABS: ALBUMIN 3.2 gm/dl (3.1-4.5); BUN 17 mg/dl (7-24); CHLORIDE 107 mmol/L (98-107); POTASSIUM 3.7 mmol/L (3.5-5.1); SODIUM 139 mmol/L (136-145)
[2019-12-18 15:27] LABS: VITAMIN D, 25-HYDROXY 25.6 ng/mL (30-100)
[2019-12-18 15:29] LABS: ALKALINE PHOSPHATASE 106 U/L (45-117); CHOLESTEROL 147 mg/dL (<200); CREATININE 0.84 mg/dL (0.55-1.02); FREE T4 1.17 ng/dl (0.76-1.46); HDL CHOLESTEROL 40 mg/dl (40-60); LDL CHOLESTEROL 64 mg/dL (9-159); SGOT/AST 23 IU/L (3-35); SGPT/ALT 18 U/L (12-78); TOTAL PROTEIN 7.5 gm/dL (6.4-8.2); TRIGLYCERIDES 217 mg/dl (<150); VLDL CHOLESTEROL 43 mg/dL (6-40)
== END | disposition home or self-care (01) ==
LOC: LAB 14:16
PROVIDERS: ATTEND Internal Medicine
DX: Z00.00 Encounter for general adult medical examination without abnormal findings (principal); I10 Essential (primary) hypertension; E78.2 Mixed hyperlipidemia; E03.9 Hypothyroidism, unspecified; E55.9 Vitamin D deficiency, unspecified; R73.03 Prediabetes

== ENCOUNTER → 2021-01-01 | Outpatient (CLI) | payer OTHER | END | disposition home or self-care (01) | LOC: MRI 00:21 | PROVIDERS: ATTEND Internal Medicine | DX: I63.89 Other cerebral infarction (principal); H74.8X1 Other specified disorders of right middle ear and mastoid; M25.512 Pain in left shoulder; R42 Dizziness and giddiness ==

== ENCOUNTER → 2021-02-02 | Outpatient (CLI) | payer OTHER | END | disposition home or self-care (01) | LOC: LAB 12:41 | PROVIDERS: ATTEND Internal Medicine | DX: A69.20 Lyme disease, unspecified (principal) ==

== ENCOUNTER 2021-04-28 15:30 | Inpatient (IN) | payer OTHER ==
[~2021-04-28] VITALS: Ht 160 cm; Wt 103.6 kg
[2021-04-28 15:31] VITALS: BP 147/80
[2021-04-28 16:18] LABS: BASO % 0.3 % (0.0-1.0); EOS % 0.3 % (1.0-4.0); HEMATOCRIT 51.2 % (37.0-47.0); LYMPH # 2.3 10*3/uL (1.3-4.4); MEAN CORPUSCULAR HGB 27.1 pg (27.0-31.0); MEAN CORPUSCULAR HGB CONC 30.9 g/dl (33.0-37.0); MEAN PLATELET VOLUME 10.9 fl (9.6-12.3); MONO # 0.6 10*3/uL (0.1-1.0); MONO % 5.9 % (3.0-9.0); NEUT # 7.6 10*3/uL (2.3-7.9); NEUT % 71.1 % (47.0-73.0); PLATELET COUNT AUTOMATED 276 10*3/uL (130-400); RED BLOOD COUNT 5.82 10*6/uL (4.10-5.10); RED CELL DISTRI WIDTH 13.3 % (0-14.5); WHITE BLOOD COUNT 10.6 10*3/uL (4.8-10.8)
[2021-04-28 16:30] LABS: ACT PARTIAL THROMBO TIME 25.8 SECONDS (20.0-32.1); INTERNATIONAL NORM RATIO 1.1 (2.0-3.5)
[2021-04-28 16:36] LABS: ALBUMIN 3.1 gm/dl (3.1-4.5); ALKALINE PHOSPHATASE 114 U/L (45-117); BUN 11 mg/dl (7-24); CHLORIDE 104 mmol/L (98-107); CPK 58 U/L (26-192); CREATININE 0.88 mg/dL (0.55-1.02); LIPASE 62 U/L (73-393); POTASSIUM 3.8 mmol/L (3.5-5.1); SGOT/AST 24 IU/L (3-35); SGPT/ALT 19 U/L (12-78); SODIUM 137 mmol/L (136-145)
[2021-04-28 16:42] LABS: BILIRUBIN Negative (Negative); BLOOD Negative (Negative); CLARITY Cloudy (Clear); COLOR Yellow (Yellow); GLUCOSE Negative (Negative); KETONE Negative (Negative); LEUKO ESTERASE Negative (Negative); NITRITE Negative (Negative); UROBILINOGEN 0.2 E.U./dl (0.0-1.0)
[2021-04-28 16:51] LABS: MUCOUS 1+
[2021-04-28 19:08] VITALS: BP 164/99
[2021-04-28] MEDS ORDERED: BUSPIRONE HCL10 MG PO (19:22)
[2021-04-28] MEDS ORDERED: ISORDIL10 M1 PO (19:23)
[2021-04-28] MEDS ORDERED: OMEPRAZOLE MAGN20 MG PO (19:24)
[2021-04-28 22:10] VITALS: BP 102/61
[2021-04-29 07:09] LABS: BUN 12 mg/dl (7-24); CHLORIDE 106 mmol/L (98-107); CREATININE 0.76 mg/dL (0.55-1.02); POTASSIUM 3.3 mmol/L (3.5-5.1); SODIUM 139 mmol/L (136-145)
[2021-04-29 07:40] LABS: BASO % 0.2 % (0.0-1.0); EOS # 0.1 10*3/uL (0.0-0.4); EOS % 1.1 % (1.0-4.0); HEMATOCRIT 42.5 % (37.0-47.0); LYMPH # 2.8 10*3/uL (1.3-4.4); MEAN CELL VOLUME 85.9 fl (81.0-99.0); MEAN CORPUSCULAR HGB 27.5 pg (27.0-31.0); MEAN PLATELET VOLUME 11.3 fl (9.6-12.3); MONO # 0.6 10*3/uL (0.1-1.0); MONO % 7.2 % (3.0-9.0); NEUT # 4.9 10*3/uL (2.3-7.9); NEUT % 57.9 % (47.0-73.0); PLATELET COUNT AUTOMATED 234 10*3/uL (130-400); RED BLOOD COUNT 4.95 10*6/uL (4.10-5.10); RED CELL DISTRI WIDTH 13.8 % (0-14.5); WHITE BLOOD COUNT 8.5 10*3/uL (4.8-10.8)
[2021-04-29 08:00] VITALS: BP 139/69
[2021-04-29 12:00] VITALS: BP 107/69
[2021-04-29 16:49] VITALS: BP 141/74
[2021-04-29 20:00] VITALS: BP 116/60
[2021-04-30] VITALS: BP 100/55
[2021-04-30 08:00] VITALS: BP 159/60
[2021-04-30 09:38] LABS: BUN 12 mg/dl (7-24); CHLORIDE 110 mmol/L (98-107); CREATININE 0.78 mg/dL (0.55-1.02); POTASSIUM 3.3 mmol/L (3.5-5.1); SODIUM 140 mmol/L (136-145)
[2021-04-30 12:00] VITALS: BP 93/40
[2021-04-30 12:15] VITALS: BP 108/62
[2021-04-30 16:00] VITALS: BP 146/62
[2021-04-30 20:00] VITALS: BP 164/76
[2021-05-01] VITALS: BP 146/60
[2021-05-01 06:53] LABS: BUN 11 mg/dl (7-24); CHLORIDE 112 mmol/L (98-107); CREATININE 0.79 mg/dL (0.55-1.02); POTASSIUM 3.6 mmol/L (3.5-5.1); SODIUM 141 mmol/L (136-145)
[2021-05-01 08:00] VITALS: BP 155/76
[2021-05-01 12:00] VITALS: BP 165/76
[2021-05-01 16:00] VITALS: BP 127/66
== END 2021-05-01 18:42 | DRG 392 ==
LOC: ED 15:30 → 5E 18:38 → EDHOLD 18:38 → 5E 20:02
PROVIDERS: Emergency Medicine; ADMIT Internal Medicine; ATTEND Internal Medicine
DX: A08.4 Viral intestinal infection, unspecified (principal); I48.21 Permanent atrial fibrillation; Z68.41 Body mass index [BMI] 40.0-44.9, adult; F33.1 Major depressive disorder, recurrent, moderate; E86.0 Dehydration; E87.6 Hypokalemia; K21.9 Gastro-esophageal reflux disease without esophagitis; I10 Essential (primary) hypertension; Z20.822 Contact with and (suspected) exposure to COVID-19; F41.1 Generalized anxiety disorder; R26.9 Unspecified abnormalities of gait and mobility; E03.9 Hypothyroidism, unspecified; E66.01 Morbid (severe) obesity due to excess calories; R62.7 Adult failure to thrive; E78.2 Mixed hyperlipidemia; M48.00 Spinal stenosis, site unspecified; M54.10 Radiculopathy, site unspecified; Z86.73 Personal history of transient ischemic attack (TIA), and cerebral infarction without residual deficits; Z88.8 Allergy status to other drugs, medicaments and biological substances

== ENCOUNTER 2021-05-23 15:15 | Emergency (ER) | payer OTHER ==
[~2021-05-23 15:15] MED LIST changes: +BUSPIRONE HCL10 MG PO; +ISORDIL10 M1 PO; +OMEPRAZOLE MAGN20 MG PO
[2021-05-23 15:49] LABS: BASO % 0.3 % (0.0-1.0); EOS % 0.4 % (1.0-4.0); HEMATOCRIT 43.9 % (37.0-47.0); LYMPH # 1.3 10*3/uL (1.3-4.4); LYMPH % 13.4 % (27.0-41.0); MEAN CELL VOLUME 86.8 fl (81.0-99.0); MEAN CORPUSCULAR HGB 27.7 pg (27.0-31.0); MEAN CORPUSCULAR HGB CONC 31.9 g/dl (33.0-37.0); MEAN PLATELET VOLUME 10.2 fl (9.6-12.3); MONO # 0.5 10*3/uL (0.1-1.0); MONO % 5.2 % (3.0-9.0); NEUT # 7.6 10*3/uL (2.3-7.9); NEUT % 79.4 % (47.0-73.0); PLATELET COUNT AUTOMATED 237 10*3/uL (130-400); RED BLOOD COUNT 5.06 10*6/uL (4.10-5.10); RED CELL DISTRI WIDTH 14.3 % (0-14.5); WHITE BLOOD COUNT 9.5 10*3/uL (4.8-10.8)
[2021-05-23 16:02] LABS: ALKALINE PHOSPHATASE 96 U/L (45-117); BUN 14 mg/dl (7-24); CHLORIDE 102 mmol/L (98-107); CREATININE 1.03 mg/dL (0.55-1.02); POTASSIUM 4.3 mmol/L (3.5-5.1); SGOT/AST 23 IU/L (3-35); SGPT/ALT 18 U/L (12-78); SODIUM 134 mmol/L (136-145); TOTAL PROTEIN 7.7 gm/dL (6.4-8.2)
[2021-05-23 16:16] LABS: BILIRUBIN Negative (Negative); BLOOD Negative (Negative); CLARITY Clear (Clear); COLOR Yellow (Yellow); GLUCOSE Negative (Negative); KETONE Negative (Negative); LEUKO ESTERASE Trace (Negative); NITRITE Negative (Negative)
[2021-05-23 16:31] LABS: URINE AMPHETAMINES < 1000 (1000ng/ml); URINE BARBITURATES < 200 (200ng/ml); URINE BENZODIAZEPINES < 200 (200ng/ml); URINE CANNABINOIDS (THC) < 50 (50ng/ml); URINE COCAINE < 300 (300ng/ml); URINE METHADONE < 300 (300ng/ml); URINE OPIATES < 300 (300ng/ml)
[2021-05-23 16:32] LABS: BACTERIA 3+; MUCOUS 1+
[2021-05-23 16:33] LABS: URINE PHENCYCLIDINE < 25 (25ng/ml)
[2021-05-23] MEDS ORDERED: CEFDINIR300 MG PO (17:56)
== END 2021-05-23 21:19 | disposition home or self-care (01) ==
LOC: ED 15:15
PROVIDERS: Emergency Medicine
DX: R30.0 Dysuria (principal); I48.20 Chronic atrial fibrillation, unspecified; Z79.899 Other long term (current) drug therapy; Z90.710 Acquired absence of both cervix and uterus; Z98.890 Other specified postprocedural states

== ENCOUNTER 2021-07-21 13:21 | Observation (INO) | payer OTHER ==
[~2021-07-21] VITALS: Ht 157.4 cm; Wt 101.3 kg
[~2021-07-21 13:21] MED LIST changes: +CEFDINIR300 MG PO
[2021-07-21 13:34] VITALS: BP 90/52
[2021-07-21 14:23] LABS: BASO % 0.5 % (0.0-1.0); EOS % 0.3 % (1.0-4.0); LYMPH # 2.1 10*3/uL (1.3-4.4); LYMPH % 27.6 % (27.0-41.0); MEAN CELL VOLUME 87.1 fl (81.0-99.0); MEAN CORPUSCULAR HGB CONC 32.1 g/dl (33.0-37.0); MEAN PLATELET VOLUME 10.3 fl (9.6-12.3); MONO # 0.7 10*3/uL (0.1-1.0); MONO % 8.5 % (3.0-9.0); NEUT # 4.8 10*3/uL (2.3-7.9); NEUT % 62.4 % (47.0-73.0); PLATELET COUNT AUTOMATED 260 10*3/uL (130-400); RED BLOOD COUNT 4.82 10*6/uL (4.10-5.10); RED CELL DISTRI WIDTH 14.5 % (0-14.5); WHITE BLOOD COUNT 7.6 10*3/uL (4.8-10.8)
[2021-07-21 14:37] LABS: ACT PARTIAL THROMBO TIME 40.2 SECONDS (20.0-32.1); INTERNATIONAL NORM RATIO 1.5 (2.0-3.5)
[2021-07-21 14:42] LABS: ALKALINE PHOSPHATASE 82 U/L (45-117); BUN 16 mg/dl (7-24); CHLORIDE 106 mmol/L (98-107); CREATININE 1.02 mg/dL (0.55-1.02); LIPASE 113 U/L (73-393); POTASSIUM 3.3 mmol/L (3.5-5.1); SGOT/AST 22 IU/L (3-35); SGPT/ALT 15 U/L (12-78); SODIUM 139 mmol/L (136-145); TOTAL PROTEIN 7.2 gm/dL (6.4-8.2)
[2021-07-21 15:15] VITALS: BP 146/70
[2021-07-21 17:45] VITALS: BP 139/78
[2021-07-21 19:11] VITALS: BP 107/54
[2021-07-21 20:45] VITALS: BP 124/54
[2021-07-21] MEDS ORDERED: KEPPRA500 MG PO (21:43)
[2021-07-22] VITALS: BP 110/57; BP 110/59; BP 188/84
[2021-07-22 08:00] VITALS: BP 154/85
[2021-07-22 12:00] VITALS: BP 146/85
[2021-07-22 16:00] VITALS: BP 129/69
[2021-07-22 20:00] VITALS: BP 100/72
[2021-07-22] MEDS ORDERED: TYLENOL325 M2 PO (22:37)
[2021-07-23] VITALS: BP 131/60
[2021-07-23] MEDS ORDERED: CEFUROXIME AXE250 MG PO (07:10)
[2021-07-23] MEDS ORDERED: DULOXETINE HCL60 MG PO (07:10)
[2021-07-23] MEDS ORDERED: POTASSIUM CHLO20 ME4 PO (07:10)
[2021-07-23 08:00] VITALS: BP 148/85
== END 2021-07-23 10:58 | disposition home or self-care (01) ==
LOC: ED 13:21 → 4E 17:57 → EDHOLD 17:57 → 4E 17:57
PROVIDERS: Emergency Medicine; ADMIT Internal Medicine; ATTEND Internal Medicine
DX: H49.01 Third [oculomotor] nerve palsy, right eye (principal); E87.2 Acidosis; J18.9 Pneumonia, unspecified organism; I48.21 Permanent atrial fibrillation; F32.9 Major depressive disorder, single episode, unspecified; E87.6 Hypokalemia; E78.2 Mixed hyperlipidemia; I10 Essential (primary) hypertension; F41.1 Generalized anxiety disorder; M48.00 Spinal stenosis, site unspecified; Z79.01 Long term (current) use of anticoagulants; Z79.899 Other long term (current) drug therapy

== ENCOUNTER 2021-10-12 19:04 | Inpatient (IN) | payer OTHER ==
[~2021-10-12 19:04] MED LIST changes: +CEFUROXIME AXE250 MG PO; +DULOXETINE HCL60 MG PO; +KEPPRA500 MG PO; +POTASSIUM CHLO20 ME4 PO; +TYLENOL325 M2 PO
[2021-10-12 20:03] LABS: BASO % 0.4 % (0.0-1.0); EOS % 0.4 % (1.0-4.0); HEMATOCRIT 41.8 % (37.0-47.0); LYMPH % 35.8 % (27.0-41.0); MEAN CORPUSCULAR HGB CONC 31.8 g/dl (33.0-37.0); MEAN PLATELET VOLUME 10.5 fl (9.6-12.3); MONO # 0.6 10*3/uL (0.1-1.0); MONO % 7.1 % (3.0-9.0); NEUT # 4.6 10*3/uL (2.3-7.9); NEUT % 55.6 % (47.0-73.0); PLATELET COUNT AUTOMATED 251 10*3/uL (130-400); RED BLOOD COUNT 4.92 10*6/uL (4.10-5.10); RED CELL DISTRI WIDTH 14.6 % (0-14.5); WHITE BLOOD COUNT 8.3 10*3/uL (4.8-10.8)
[2021-10-12 20:30] LABS: ALKALINE PHOSPHATASE 102 U/L (45-117); BUN 16 mg/dl (7-24); CHLORIDE 105 mmol/L (98-107); CREATININE 1.13 mg/dL (0.55-1.02); POTASSIUM 3.8 mmol/L (3.5-5.1); SGOT/AST 26 IU/L (3-35); SGPT/ALT 15 U/L (12-78); SODIUM 137 mmol/L (136-145); TOTAL PROTEIN 7.2 gm/dL (6.4-8.2)
[2021-10-12 20:49] LABS: ACETAMINOPHEN (TYLENOL) < 5.0 ug/ml (10-30); ETHYL ALCOHOL < 3.0 mg/dl (<3)
[2021-10-12 21:33] LABS: BILIRUBIN Negative (Negative); BLOOD Negative (Negative); CLARITY Clear (Clear); COLOR Yellow (Yellow); GLUCOSE Negative (Negative); KETONE Trace (Negative); LEUKO ESTERASE Negative (Negative); NITRITE Negative (Negative); PH 5.5 (4.5-8.0); UROBILINOGEN 0.2 E.U./dl (0.0-1.0)
[2021-10-12 21:40] LABS: URINE AMPHETAMINES < 1000 (1000ng/ml); URINE BARBITURATES < 200 (200ng/ml); URINE BENZODIAZEPINES < 200 (200ng/ml); URINE CANNABINOIDS (THC) < 50 (50ng/ml); URINE COCAINE < 300 (300ng/ml); URINE METHADONE < 300 (300ng/ml); URINE OPIATES < 300 (300ng/ml)
[2021-10-12 21:41] LABS: URINE PHENCYCLIDINE < 25 (25ng/ml)
[2021-10-12 21:53] LABS: BACTERIA 1+; EPITHELIAL CELLS 31-40; MUCOUS TRACE; RBC 0-2 rbc/hpf (0-2); WBC 0-2 wbc/hpf (0-5)
[2021-10-12 22:57] VITALS: BP 132/71
[2021-10-13 03:55] VITALS: BP 138/79
[2021-10-13 04:30] VITALS: BP 132/71
[2021-10-13 07:22] VITALS: BP 124/59
[2021-10-13 08:00] VITALS: BP 124/59
[2021-10-13 11:12] LABS: THYROID STIM HORMONE (HS) 4.29 uIU/ml (0.358-4.75)
[2021-10-13 11:46] LABS: VITAMIN D, 25-HYDROXY 32.5 ng/mL (30-100)
[2021-10-13 19:19] VITALS: BP 156/77
[2021-10-14 07:19] VITALS: BP 145/85
[2021-10-14 20:00] VITALS: BP 130/53
[2021-10-15 08:00] VITALS: BP 131/78
[2021-10-15 10:35] LABS: BASO % 0.3 % (0.0-1.0); EOS % 0.5 % (1.0-4.0); HEMATOCRIT 40.8 % (37.0-47.0); LYMPH # 2.6 10*3/uL (1.3-4.4); LYMPH % 29.1 % (27.0-41.0); MEAN CELL VOLUME 85.9 fl (81.0-99.0); MEAN CORPUSCULAR HGB 26.9 pg (27.0-31.0); MEAN CORPUSCULAR HGB CONC 31.4 g/dl (33.0-37.0); MEAN PLATELET VOLUME 10.4 fl (9.6-12.3); MONO # 0.7 10*3/uL (0.1-1.0); MONO % 7.4 % (3.0-9.0); NEUT # 5.4 10*3/uL (2.3-7.9); NEUT % 61.9 % (47.0-73.0); PLATELET COUNT AUTOMATED 223 10*3/uL (130-400); RED BLOOD COUNT 4.75 10*6/uL (4.10-5.10); RED CELL DISTRI WIDTH 14.3 % (0-14.5); WHITE BLOOD COUNT 8.8 10*3/uL (4.8-10.8)
[2021-10-15 10:50] LABS: ALKALINE PHOSPHATASE 101 U/L (45-117); BUN 16 mg/dl (7-24); CHLORIDE 106 mmol/L (98-107); POTASSIUM 5.4 mmol/L (3.5-5.1); SGOT/AST 21 IU/L (3-35); SGPT/ALT 14 U/L (12-78); SODIUM 138 mmol/L (136-145); TOTAL PROTEIN 6.9 gm/dL (6.4-8.2)
[2021-10-15 20:00] VITALS: BP 138/70
[2021-10-16 07:28] VITALS: BP 148/71
[2021-10-16 20:00] VITALS: BP 98/68
[2021-10-17 07:53] VITALS: BP 148/79
[2021-10-17] MEDS ORDERED: VOLTAREN ARTHRI20 GM T (12:05)
[2021-10-17 20:00] VITALS: BP 128/63
[2021-10-18 06:59] LABS: BUN 15 mg/dl (7-24); CHLORIDE 104 mmol/L (98-107); POTASSIUM 4.4 mmol/L (3.5-5.1); SGOT/AST 22 IU/L (3-35); SGPT/ALT 13 U/L (12-78); SODIUM 139 mmol/L (136-145); TOTAL PROTEIN 6.4 gm/dL (6.4-8.2)
[2021-10-18 07:00] LABS: ALKALINE PHOSPHATASE 100 U/L (45-117); CREATININE 0.86 mg/dL (0.55-1.02)
[2021-10-18 07:32] VITALS: BP 135/82
[2021-10-18 20:00] VITALS: BP 114/87
[2021-10-19 07:26] VITALS: BP 116/70
[2021-10-19 20:00] VITALS: BP 101/62
[2021-10-20 07:27] VITALS: BP 138/67
[2021-10-20 20:00] VITALS: BP 104/56
[2021-10-21 08:00] VITALS: BP 121/60
[2021-10-21 20:00] VITALS: BP 92/48
[2021-10-22 07:00] VITALS: BP 138/73
[2021-10-22] MEDS ORDERED: TRINTELLIX20 MG PO (10:37)
[2021-10-22] MEDS ORDERED: BUPROPION HYDR150 M3 PO (10:37)
[2021-10-22] MEDS ORDERED: ARIPIPRAZOLE5 MG PO (10:37)
[2021-10-22] MEDS ORDERED: RAMELTEON8 MG PO (10:37)
[2021-10-22] MEDS ORDERED: RIVASTIGMINE TAR6 M1 PO (10:37)
== END 2021-10-22 12:35 | DRG 885 ==
LOC: ED 19:04 → 3N 10-13 02:11
PROVIDERS: Counselor Professional; Emergency Medicine; Internal Medicine; ADMIT Psychiatry & Neurology Psychiatry; ATTEND Psychiatry & Neurology Psychiatry
PROC: 0HBRXZZ Excision of Toe Nail, External Approach (ICD-10-PCS; principal; 2021-10-19)
PROC: 0HBRXZZ Excision of Toe Nail, External Approach (ICD-10-PCS; 2021-10-19)
PROC: 0HBRXZZ Excision of Toe Nail, External Approach (ICD-10-PCS; 2021-10-19)
PROC: 0HBRXZZ Excision of Toe Nail, External Approach (ICD-10-PCS; 2021-10-19)
PROC: 0HBRXZZ Excision of Toe Nail, External Approach (ICD-10-PCS; 2021-10-19)
PROC: 0HBRXZZ Excision of Toe Nail, External Approach (ICD-10-PCS; 2021-10-19)
PROC: 0HBRXZZ Excision of Toe Nail, External Approach (ICD-10-PCS; 2021-10-19)
PROC: 0HBRXZZ Excision of Toe Nail, External Approach (ICD-10-PCS; 2021-10-19)
PROC: 0HBRXZZ Excision of Toe Nail, External Approach (ICD-10-PCS; 2021-10-19)
PROC: 0HBRXZZ Excision of Toe Nail, External Approach (ICD-10-PCS; 2021-10-19)
DX: F33.2 Major depressive disorder, recurrent severe without psychotic features (principal); I48.21 Permanent atrial fibrillation; Z96.651 Presence of right artificial knee joint; E78.2 Mixed hyperlipidemia; G89.29 Other chronic pain; M54.9 Dorsalgia, unspecified; E03.9 Hypothyroidism, unspecified; G62.9 Polyneuropathy, unspecified; I25.10 Atherosclerotic heart disease of native coronary artery without angina pectoris; K21.9 Gastro-esophageal reflux disease without esophagitis; F41.1 Generalized anxiety disorder; F43.21 Adjustment disorder with depressed mood; Z20.822 Contact with and (suspected) exposure to COVID-19; M54.50 Low back pain, unspecified; B35.1 Tinea unguium; Z90.710 Acquired absence of both cervix and uterus; Z83.3 Family history of diabetes mellitus; Z79.01 Long term (current) use of anticoagulants; Z82.49 Family history of ischemic heart disease and other diseases of the circulatory system; Z82.5 Family history of asthma and other chronic lower respiratory diseases; Z86.73 Personal history of transient ischemic attack (TIA), and cerebral infarction without residual deficits

== ENCOUNTER → 2023-03-17 | Outpatient (CLI) | payer OTHER ==
[~2023-03-17] MED LIST changes: +ABILIFY5 MG PO; +ACETAMINOPHEN500 M4 PO; +AEROECLIPSE II1 EACH MC; +ALBUTEROL2.5 MG/0.5 INH; +ARIPIPRAZOLE5 MG PO; +BENZONATATE100 M1 PO; +BUPROPION HYDR150 M3 PO; +CIPRO500 MG PO; +FUROSEMIDE20 M1 PO; +HYDROCODONE-AC1 EAC1 PO; +K-TAB10 MEQ PO; +LOPRESSOR25 MG PO; +Lidoderm 5% Patch T; +MIRTAZAPINE15 M2 PO; +MOTRIN 600 MG E4 TAB PO; +PREDNISONE5 MG PO; +PRILOSEC20 M1 PO; -PRILOSEC20 M2 PO; +RAMELTEON8 MG PO; +RIVASTIGMINE TAR6 M1 PO; +TOLTERODINE TART2 M3 PO; +TRINTELLIX20 MG PO; +VITAMIN B-121000 MC2 PO; +VOLTAREN ARTHRI20 GM T
== END | disposition home or self-care (01) ==
LOC: ORTHO 02:15
PROVIDERS: ATTEND Orthopaedic Surgery
DX: S72.451D Displaced supracondylar fracture without intracondylar extension of lower end of right femur, subsequent encounter for closed fracture with routine healing (principal); X58.XXXD Exposure to other specified factors, subsequent encounter

== ENCOUNTER → 2023-04-24 | Outpatient (CLI) | payer OTHER | END | disposition home or self-care (01) | LOC: ORTHO 00:30 | PROVIDERS: ATTEND Orthopaedic Surgery | DX: S72.451D Displaced supracondylar fracture without intracondylar extension of lower end of right femur, subsequent encounter for closed fracture with routine healing (principal); X58.XXXD Exposure to other specified factors, subsequent encounter ==

== ENCOUNTER → 2023-05-22 | Outpatient (CLI) | payer OTHER | END | disposition home or self-care (01) | LOC: ORTHO 02:57 → RAD 11:01 | PROVIDERS: ATTEND Orthopaedic Surgery | DX: S72.451D Displaced supracondylar fracture without intracondylar extension of lower end of right femur, subsequent encounter for closed fracture with routine healing (principal); X58.XXXD Exposure to other specified factors, subsequent encounter ==

== ENCOUNTER → 2024-02-06 | Outpatient (CLI) | payer OTHER ==
[2024-02-06 11:12] LABS: BASO % 0.4 % (0.0-1.0); EOS # 0.1 10*3/uL (0.0-0.4); EOS % 0.8 % (1.0-4.0); HEMATOCRIT 43.8 % (37.0-47.0); MEAN CELL VOLUME 88.3 fl (81.0-99.0); MEAN CORPUSCULAR HGB 28.4 pg (27.0-31.0); MEAN CORPUSCULAR HGB CONC 32.2 g/dl (33.0-37.0); MEAN PLATELET VOLUME 10.2 fl (9.6-12.3); MONO # 0.7 10*3/uL (0.1-1.0); MONO % 8.3 % (3.0-9.0); NEUT # 4.2 10*3/uL (2.3-7.9); NEUT % 53.1 % (47.0-73.0); PLATELET COUNT AUTOMATED 278 10*3/uL (130-400); RED BLOOD COUNT 4.96 10*6/uL (4.10-5.10); RED CELL DISTRI WIDTH 13.7 % (0-14.5)
[2024-02-06 11:35] LABS: ALKALINE PHOSPHATASE 100 U/L (46-116); BUN 19 mg/dl (9-23); CHLORIDE 103 mmol/L (98-107); CHOLESTEROL 158 mg/dL (<200); FREE T4 1.16 ng/dl (0.89-1.76); LDL CHOLESTEROL 73 mg/dL (9-159); SGPT/ALT 11 U/L (5-49); TOTAL PROTEIN 7.4 gm/dL (6.0-8.0); TRIGLYCERIDES 229 mg/dl (<150)
[2024-02-06 11:52] LABS: VITAMIN D, 25-HYDROXY 38.6 ng/mL (30-100)
== END | disposition home or self-care (01) ==
LOC: LAB 10:32
PROVIDERS: ATTEND Internal Medicine
DX: I10 Essential (primary) hypertension (principal); R53.83 Other fatigue; E78.2 Mixed hyperlipidemia; E03.9 Hypothyroidism, unspecified; E53.9 Vitamin B deficiency, unspecified; E55.9 Vitamin D deficiency, unspecified

== ENCOUNTER → 2024-12-06 | Outpatient (CLI) | payer OTHER ==
[~2024-12-06] MED LIST changes: +Regadenoson 0.4 MG/5 ML SYR IV ONE
[2024-12-06 10:22] LABS: BASO # 0.0 10*3/uL (0.0-0.1); BASO % 0.4 % (0.0-1.0); EOS # 0.0 10*3/uL (0.0-0.4); EOS % 0.2 % (1.0-4.0); MEAN CELL VOLUME 85.7 fl (81.0-99.0); MEAN CORPUSCULAR HGB 26.5 pg (27.0-31.0); MEAN PLATELET VOLUME 10.1 fl (9.6-12.3); MONO # 0.9 10*3/uL (0.1-1.0); MONO % 8.7 % (3.0-9.0); NEUT # 7.5 10*3/uL (2.3-7.9); NEUT % 70.8 % (47.0-73.0); NUCLEATED RED BLOOD CELL 0.0 % (0.0-0.0); NUCLEATED RED BLOOD CELL 0.0 10*3/uL (0.0-0.0); PLATELET COUNT AUTOMATED 257 10*3/uL (130-400); RED CELL DISTRI WIDTH 14.2 % (0-14.5)
[2024-12-06 10:57] LABS: BUN 17 mg/dl (9-23); FREE T4 1.33 ng/dl (0.89-1.76); LDL CHOLESTEROL 52 mg/dL (9-159); SGPT/ALT 9 U/L (5-49)
[2024-12-06 10:58] LABS: VITAMIN D, 25-HYDROXY 47.8 ng/mL (30-100)
== END | disposition home or self-care (01) ==
LOC: LAB 00:31 → CARD 07:30 → LAB 07:30
PROVIDERS: ATTEND Internal Medicine
DX: R07.9 Chest pain, unspecified (principal); R06.02 Shortness of breath; I10 Essential (primary) hypertension; E03.9 Hypothyroidism, unspecified; E78.2 Mixed hyperlipidemia; E53.9 Vitamin B deficiency, unspecified; Z13.0 Encounter for screening for diseases of the blood and blood-forming organs and certain disorders involving the immune mechanism; Z13.1 Encounter for screening for diabetes mellitus; Z13.21 Encounter for screening for nutritional disorder; R53.83 Other fatigue; Z13.9 Encounter for screening, unspecified; Z13.6 Encounter for screening for cardiovascular disorders; Z13.89 Encounter for screening for other disorder; E11.9 Type 2 diabetes mellitus without complications